=== PATIENT | female | born 1990 | race Caucasian/White ===

== ENCOUNTER 2018-10-09 22:10 | Inpatient (IN) | payer MEDICAID ==
[~2018-10-09] VITALS: Ht 165.1 cm; Wt 53.2 kg
[2018-10-09 22:16] VITALS: Ht 165.1 cm; Wt 53.2 kg
[2018-10-09 22:45] LABS: PLATELET COUNT 355 x10^3mcL (130-400)
[2018-10-09 22:54] LABS: CALCIUM 8.8 mg/dL (8.5-10.1); CHLORIDE SERUM 103 mmol/L (98-107); CREATININE SERUM 0.9 mg/dL (0.6-1.0); GFR1 > 60 mL/min; GLUCOSE SERUM 105 mg/dL (74-106); POTASSIUM SERUM 4.1 mmol/L (3.5-5.1); SODIUM SERUM 140 mmol/L (136-145)
[2018-10-09 23:00] LABS: microscopic required? NO
[2018-10-09 23:06] LABS: ALKALINE PHOSPHATASE 51 U/L (46-116); ALT/SGPT 22 U/L (14-59); AST/SGOT 17 U/L (15-37); BILIRUBIN TOTAL 0.43 mg/dL (0.20-1.00); TOTAL PROTEIN, SERUM 7.5 g/dL (6.4-8.2)
[2018-10-09 23:22] LABS: UA SPECIFIC GRAVITY 1.025 (1.005-1.035); urine erythrocyte NEGATIVE (NEGATIVE)
[2018-10-09 23:38] LABS: AMPHETAMINE QUAL UR NONE DETECTED (See below)
[2018-10-10 19:44] LABS: MAGNESIUM 1.8 mg/dL (1.8-2.4); PHOSPHOROUS 4.1 mg/dL (2.5-4.9)
[2018-10-10 19:45] LABS: CHOLESTEROL/HDL RATIO 2.8
[2018-10-11 04:34] VITALS: BP 96/64
[2018-10-11 06:01] VITALS: BP 98/64
[2018-10-11 09:15] VITALS: BP 96/51
[2018-10-12 06:27] VITALS: BP 95/81
[2018-10-12 09:24] VITALS: BP 107/57
[2018-10-12 18:19] VITALS: BP 103/53
[2018-10-12 21:10] VITALS: BP 100/68
[2018-10-13 06:07] VITALS: BP 104/61
[2018-10-13 08:41] VITALS: BP 107/39
[2018-10-13 17:10] VITALS: BP 103/43
[2018-10-14 06:01] VITALS: BP 99/49
[2018-10-14 14:15] VITALS: BP 100/57
[2018-10-14 18:38] VITALS: BP 99/49
[2018-10-14 20:27] VITALS: BP 100/50
[2018-10-15 05:37] VITALS: BP 94/53
[2018-10-15 10:00] VITALS: BP 101/44
[2018-10-15 20:26] VITALS: BP 103/42
[2018-10-16 05:24] VITALS: BP 93/54
[2018-10-16 10:00] VITALS: BP 96/41
[2018-10-16 16:26] VITALS: BP 96/41
[2018-10-16 18:35] VITALS: BP 118/71
== END 2018-10-16 18:54 | DRG 815 ==
LOC: ED 22:10 → MU 10-10 19:07
PROVIDERS: Specialist; ADMIT General Practice
DX: T71.162A Asphyxiation due to hanging, intentional self-harm, initial encounter (principal); F20.9 Schizophrenia, unspecified; S17.9XXA Crushing injury of neck, part unspecified, initial encounter; T42.6X6A Underdosing of other antiepileptic and sedative-hypnotic drugs, initial encounter; T43.596A Underdosing of other antipsychotics and neuroleptics, initial encounter; N76.0 Acute vaginitis; F31.9 Bipolar disorder, unspecified; F32.9 Major depressive disorder, single episode, unspecified; F41.9 Anxiety disorder, unspecified; F19.10 Other psychoactive substance abuse, uncomplicated; F15.10 Other stimulant abuse, uncomplicated; F11.10 Opioid abuse, uncomplicated; Z68.1 Body mass index [BMI] 19.9 or less, adult; Y92.59 Other trade areas as the place of occurrence of the external cause; Z91.128 Patient's intentional underdosing of medication regimen for other reason; Y92.199 Unspecified place in other specified residential institution as the place of occurrence of the external cause
CPT/HCPCS: G0480; J1200; J1630; J2060